=== PATIENT | female | born 1995 | race African-American/Black ===

== ENCOUNTER 2021-09-01 22:59 | Emergency (ER) | payer MEDICAID ==
[~2021-09-01] VITALS: Ht 160 cm; Wt 91.0 kg
[~2021-09-01 22:59] MED LIST: KEPP500 PO
[2021-09-02] MEDS ORDERED: IBUPROFEN 400MG TABLET PO ONE
[2021-09-02] MEDS ORDERED: ACETAMINOPHEN 325MG TABLET PO ONE
[2021-09-02] MEDS ORDERED: LIDOCAINE HCL/PF 1% 10 MG/ML 5ML VIAL INFIL ONE (01:30)
[2021-09-02] MEDS ORDERED: BACITRACIN ZINC OINT UDPKT TOP ONE (01:30)
[2021-09-02] MEDS ORDERED: LIDOCAINE HCL 1% 10 MG/ML 10ML VIAL INJ NR (02:00)
[2021-09-02] MEDS ORDERED: ONDANSETRON 4MG ODT PO ONE (02:15)
[2021-09-02] MEDS ORDERED: CEFI400C4 PO (02:41)
[2021-09-02] MEDS ORDERED: CLIN300C12 MT (02:41)
[2021-09-02] MEDS ORDERED: HYDROCODONE/ACETAMINOPHEN 5/325MG TABLET PO ONE (02:45)
[2021-09-02 02:50] VITALS: BP 136/88
== END 2021-09-02 03:11 | disposition home or self-care (01) ==
LOC: ER 22:59
DX: N76.4 Abscess of vulva (principal); R56.9 Unspecified convulsions
CPT/HCPCS: 10060; 99284; J3490; Q0162